=== PATIENT | female | born 1940 | race Caucasian/White ===

== ENCOUNTER → 2023-09-11 07:42 | Outpatient (REF) | payer MEDICARE, OTHER, SELFPAY | LOC: MRI 3T 07:42 | PROVIDERS: ATTENDING PHYSICIAN Psychiatry & Neurology Neurology; FAMILY PHYSICIAN Nurse Practitioner | DX: G30.9 Alzheimer's disease, unspecified (principal); F02.80 Dementia in other diseases classified elsewhere, unspecified severity, without behavioral disturbance, psychotic disturbance, mood disturbance, and anxiety | CPT/HCPCS: 70553; A9575 ==

== ENCOUNTER → 2023-11-13 11:17 | Outpatient (REF) | payer MEDICARE, OTHER, SELFPAY ==
[2023-11-13 13:59] LABS: TSH Reflex To Free T4 1.65 uIU/ml (0.47-4.68)
[2023-11-13 14:19] LABS: Vitamin B12 980 pg/ml (239-931)
[2023-11-13 16:40] LABS: Syphilis/T. pallidum Ab Reflex Negative (Negative)
== END ==
LOC: REG 11:17
PROVIDERS: ATTENDING PHYSICIAN Psychiatry & Neurology Neurology
DX: G30.9 Alzheimer's disease, unspecified (principal)
CPT/HCPCS: 36415; 82607; 84443; 86780

== ENCOUNTER → 2023-11-22 11:00 | Outpatient (REF) | payer MEDICARE, OTHER, SELFPAY ==
[2023-11-22 12:11] LABS: % Basophils 0.4 % (0-2); % Eosinophils 4.5 % (0-6); % Immature Granulocytes 0.4 % (0-0.5); % Lymphocytes 18.3 % (20.5-51.1); % Monocytes 10.5 % (1.7-9.3); % Neutrophils 65.9 % (42.2-75.2); Absolute Eosinophils 0.3 10^3/uL (0-0.7); Absolute Lymphocytes 1.3 10^3/uL (1.2-3.4); Absolute Monocytes 0.7 10^3/uL (0.1-0.6); Absolute Neutrophils 4.5 10^3/uL (1.4-6.5); Hematocrit 32.4 % (37.0-47.0); Hemoglobin 10.5 g/dL (12.0-16.0); Mean Corp Hgb Conc. 32.4 g/dL (33.0-37.0); Mean Corpuscular Hgb 30.1 pg (27.0-31.0); Mean Corpuscular Volume 92.8 fL (81.0-99.0); Mean Platelet Volume 8.9 fL (7.4-10.4); Nucleated Red Blood Cells % 0 %; Platelet Count 198 10^3/uL (130-400); Red Blood Cell Count 3.49 10^6/uL (4.20-5.40); Red Cell Dist. Width 14.2 % (11.5-14.5); White Blood Cell Count 6.8 10^3/uL (4.8-10.8)
[2023-11-22 13:43] LABS: ALT (SGPT) 19 U/L (0-35); AST (SGOT) 35 U/L (14-36); Albumin 4.4 g/dl (3.5-5.0); Alkaline Phosphatase 66 U/L (38-126); Blood Urea Nitrogen 32 mg/dl (7-17); Calcium 9.8 mg/dl (8.4-10.2); Carbon Dioxide 30 mmol/L (22-30); Chloride 100 mmol/L (98-107); Glucose 63 mg/dl (70-99); Potassium 5.2 mmol/L (3.5-5.1); Sodium 134 mmol/L (135-145); Total Bilirubin 0.4 mg/dl (0.2-1.3); Total Protein 7.5 g/dl (6.3-8.2); eGFR 55.55
== END ==
LOC: REG 11:00
PROVIDERS: ATTENDING PHYSICIAN Internal Medicine Cardiovascular Disease; FAMILY PHYSICIAN Internal Medicine; REFERRING PHYSICIAN Internal Medicine Interventional Cardiology
DX: I10 Essential (primary) hypertension (principal); R74.01 Elevation of levels of liver transaminase levels
CPT/HCPCS: 36415; 80053; 85025

== ENCOUNTER 2023-12-03 07:53 | Day surgery (SDC) | payer MEDICARE, OTHER, SELFPAY ==
[2023-12-03] VITALS (14 sets, daily range): BP systolic 106–150; BP diastolic 36–72; BMI 22.1
[2023-12-03] MEDS: NSS 149 ML IV (08:31)
[2023-12-03] MEDS: LOW STRENGTH ASPIRIN 81 MG PO (08:32)
--- NOTE | 2023-12-03 09:32 | ITS.CL.CATH ---
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
Cardiac Catheterization
Procedure Report:
LEFT HEART CATHETERIZATION
Date of Procedure: [12/03/2023]
Procedures performed:
1: Coronary angiography
2: Right heart catheterization
3: Conscious sedation
Primary Care Physician: Unknown
Primary Church Business Administrator: Sasha Brian MD
INDICATION: Severe aortic stenosis
After obtaining informed consent, patient was brought into the procedure room and right radial artery was prepped and draped in sterile fashion. Right brachial vein was prepped and draped in sterile fashion.
ACCESS: The patient was prepped and draped in usual sterile fashion. A 6 Dominican sheath was placed in the right [right radial] artery using the Seldinger over the wire technique.
Using brachial vein access, right heart catheterization was performed. A 5 Dominican Gonsalez balloontipped catheter was used to measure right-sided pressures.
Pulmonary capillary wedge pressure is 14 mmHg.
PA's 29/18 with a mean of 19 mmHg.
RV is 30 over 3 mmHg.
RA is 9 mmHg.
Aortic pressure is 121/43.
Tobin cardiac output is 3.53 L/min.
Cardiac index 2.48 L/min/m�.
ANGIOGRAPHIC FINDINGS: Patient has known severe aortic stenosis by echo, so the aortic valve was not crossed.
Coronary Angiography: Using a JL 4 diagnostic catheter, left main coronary was engaged. Left system was imaged in multiple projections. Using a JR 4 diagnostic catheter, right system was engaged. Right system was imaged in multiple projections.
Dominance: Right dominant.
Left Main: Very short. Early bifurcation into the LAD and left circumflex artery. Mild luminal irregularities.
Left Anterior Descending: Large vessel. Very tortuous. Minor luminal irregularities present. 2 large diagonals present. LAD which is the apex.
Left Circumflex: Normal sized vessel. 1 large OM. Mild luminal regularities present.
Right Coronary: Normal sized vessel. Dominant. 20 to 30% mid right coronary artery stenosis, mildly calcified.
Closure device: None. A TR band was applied for hemostasis at the right wrist. Manual pressure was held in the right brachial vein.
Complications: None.
ASSESSMENT:
1: No angiographically significant coronary artery disease
2: Normal right-sided pressures.
CONCLUSIONS and RECOMMENDATIONS:
1: [Proceed with a TAVR workup as planned.]
I was present with the patient for the duration of the moderate sedation and supervised staff who monitored the patient for the entire procedure. Details of sedation are entered by the nurse administering the sedation and details of the patient's
monitoring status are entered by a sign monitor role staff member into the [facility] laboratory electronic record system. Please see the nursing flow sheets for documentation of the name of the independent trained observer, and intra-service start and
end times.
I administered moderate sedation throughout this [24] minute procedure. An independent trained observer administered medications at my direction, and monitored, along with the monitor role staff member, the patient's level of consciousness and
physiological status throughout
[2023-12-03] MEDS: NSS 1000 IV (10:12)
--- NOTE | 2023-12-03 12:45 | CONSULT.STRU ---
Consultation
-
Date/Time Consultation Requested: 12/03/2023 0930
Date/Time Consultation Performed: 12/03/2023 1000
Requesting Provider: Dr. Donahue
Performing Provider: ELMER Dennis
Reason for Consultation: Aortic stenosis, TAVR evaluation
Patient History
Physicians
Family Physician: Laya Broussard
Outpatient Blockers Skiver: Sasha Brian
Primary Blockers Skiver: Sasha Brian
History of Present Illness
Mrs. Hodges is a pleasant 82-year-old female who is accompanied by her and underwent a cardiac catheterization this morning. Her past medical history is hypertension, osteoporosis, chronic anemia of unclear etiology with baseline hemoglobin
of 9.5-10.5 at least since 2021, hyperlipidemia, early stages of Alzheimer's/memory deficits, severe aortic stenosis. She was referred to Dr. Schafer by her primary broom handle dipper, Dr. Sasha Brian for evaluation of a transcatheter aortic valve
replacement/TAVR.� Patient is not very active at baseline and with limited activity which includes only walking around her home for basic ADLs, she denies any resting or exertional chest discomfort, shortness of breath, lower extremity edema,
orthopnea, PND or alex syncope. has noted that she does get fatigued. She had a echocardiogram completed on July 11, 2023 which showed normal LVEF by report with max velocity across aortic valve of 4.07 m/s, mean gradient of 40.6 mmHg
and estimated aortic valve area of 0.73 cm2. Her cardiac cath today show no obstructive CAD. She has not had any recent falls and does not use any assistive devices to walk. She lives at home with her .
Reviewed the pathophysiology of aortic stenosis with the patient and her . Explained the treatment options of SAVR and TAVR. Explained the TAVR evaluation process including follow up BMP, CT TAVR scan, CT surgery consult and Heart Team
discussion. Provided with script for BMP next week, script and appointment for CT TAVR, Consult appointment with Dr. Márquez and a copy of the TAVR education booklet with contact information. Allowed for and answered questions. Patient has already
completed dental clearance and letter is in her chart.
Past Medical History
Past Medical History: HTN, Hypercholesterolemia, Valvular Disease (severe aortic stenosis) and Other
osteoporosis, chronic anemia, memory loss, arthritis
Past Surgical History
Past Surgical History: Other (Cataract surgery 2009)
Dental History
Dr. Campbell- regular dental care, dental clearance compplete
Family History
Mother: at Age (83) and Cause of (breast cancer)
Father: at Age (67) and Cause of (cardiac)
Family Medical History: CAD and Hypertension
Social History
Alcohol: None
Drug: None
Tobacco: Non-Smoker
Personal:
Living: With Spouse
Allergies
Allergy/AdvReac Type Severity Reaction Status Date / Time
Penicillins Allergy Severe Unverified 11/28/07 11:28
Home Medications
�Medication �Instructions �Recorded �Confirmed �Type
Vision Formula (with lutein) 1 pill PO DAILY 12/03/23 12/03/23 History
aspirin 81 mg tablet 81 mg PO 12/03/23 12/03/23 History
calcium 600 mg capsule 600 mg PO DAILY 12/03/23 12/03/23 History
calcium phosphate,dibasic 77 2,000 tab PO HS 12/03/23 12/03/23 History
mg-vitamin D3 400 unit tablet
citalopram 10 mg tablet 10 mg PO DAILY 12/03/23 12/03/23 History
donepezil 10 mg tablet 10 mg PO HS 12/03/23 12/03/23 History
lisinopril 10 mg tablet 10 mg PO DAILY 12/03/23 12/03/23 History
memantine 10 mg tablet 10 mg PO BID 12/03/23 12/03/23 History
simvastatin 20 mg tablet 20 mg PO HS 12/03/23 12/03/23 History
STS%
STS %: 5.93%
Review of Systems
-
Unable to obtain full review of systems at this time due to: Dementia (early memory loss)
History Source: Patient and Family
General: Reports Fatigue
HEENT: Reports No Symptoms
Respiratory: Reports No Symptoms
Cardiac: Reports No Symptoms
Abdomen/GI: Reports No Symptoms
: Reports No Symptoms
Musculoskeletal: Reports Joint Pain (hips)
Skin: Reports Rash (redness under breast)
Neurological: Reports No Symptoms
Vascular: Reports No Symptoms
Physical Exam
Vital Signs
Temp 97.3 F 12/03/23 09:34
Temp route: Oral 12/03/23 09:34
Pulse 59 12/03/23 12:35
Resp Rate 17 12/03/23 12:35
Blood pressure 137/50 12/03/23 12:35
Blood pressure extremity used: Left upper arm 12/03/23 09:34
Position: Lying 12/03/23 09:34
MAP (cuff-Pedrito Monitor) 73 12/03/23 12:35
SaO2 98 12/03/23 12:35
Oxygen Mode of Delivery Room air 12/03/23 09:34
Can the patient verbally communicate their pain? Yes 12/03/23 09:34
Actual Weight 49.6 kg 12/03/23 08:19
Body Mass Index (BMI) 22.1 12/03/23 08:19
Labs
11/22/2023:
H/H: 10.5/32.4
Platelets: [id number]
BUN/Creat: 32/1.0
GFR: 55
Diagnostic Studies
07/11/2023 Echocardiogram at [facility]:
EF: 60-65%
Aortic valve with severe aortic stenosis. OG/M.3/40.7. Mild AI
Mitral Valve: mild to moderate MAC, mild MR
Tricuspid Valve: Mild TR
12/03/2023 Cardiac Cath:
ACCESS: The patient was prepped and draped in usual sterile fashion. A 6 Armenian sheath was placed in the right [right radial] artery using the Seldinger over the wire technique.
Using brachial vein access, right heart catheterization was performed. A 5 Armenian Gonsalez balloontipped catheter was used to measure right-sided pressures.
Pulmonary capillary wedge pressure is 14 mmHg.
PA's 29/18 with a mean of 19 mmHg.
RV is 30 over 3 mmHg.
RA is 9 mmHg.
Aortic pressure is 121/43.
Tobin cardiac output is 3.53 L/min.
Cardiac index 2.48 L/min/m�.
ANGIOGRAPHIC FINDINGS: Patient has known severe aortic stenosis by echo, so the aortic valve was not crossed.
Coronary Angiography: Using a JL 4 diagnostic catheter, left main coronary was engaged. Left system was imaged in multiple projections. Using a JR 4 diagnostic catheter, right system was engaged. Right system was imaged in multiple projections.
Dominance: Right dominant.
Left Main: Very short. Early bifurcation into the LAD and left circumflex artery. Mild luminal irregularities.
Left Anterior Descending: Large vessel. Very tortuous. Minor luminal irregularities present. 2 large diagonals present. LAD which is the apex.
Left Circumflex: Normal sized vessel. 1 large OM. Mild luminal regularities present.
Right Coronary: Normal sized vessel. Dominant. 20 to 30% mid right coronary artery stenosis, mildly calcified.
Closure device: None. A TR band was applied for hemostasis at the right wrist. Manual pressure was held in the right brachial vein.
Complications: None.
ASSESSMENT:
1: No angiographically significant coronary artery disease
2: Normal right-sided pressures.
CONCLUSIONS and RECOMMENDATIONS:
1: [Proceed with a TAVR workup as planned.]
Exam
General: Well Developed, Well Nourished, No Apparent Distress and Comfortable
HEENT: Normocephalic and Moist Mucous Membranes
Neck: Trachea Midline
Respiratory: Clear
Cardiac: S1/S2, Regular Rhythm and Murmur (Grade III/)
GI: Soft, Non Tender, Non Distended and Normal Bowel Sounds
Rectal: Deferred by Provider
Skin: Warm and Dry
Neuro: Awake, Oriented and No Motor Deficits
Extremities: Pulses (+2 pedal pulses)
Psych: Calm
Assessment / Plan
-
Severe Aortic stenosis:
��������������� Continue evaluation for TAVR
��������������� [facility]
��������������� CT TAVR scan 12/13/2023 at 0930 at
��������������� CT surgery consult with Dr. Márquez 12/18/2023
��������������� Heart team discussion at [facility]
Data Reviewed
-
Center Director Lead Teacher: Report Reviewed by me
Echo: Report Reviewed by me
Labs: Labs Reviewed by me
Total Time Spent with Patient (in minutes): 40
== END 2023-12-03 13:57 | disposition home or self-care (01) ==
LOC: CATH 07:53
PROVIDERS: ATTENDING PHYSICIAN Internal Medicine Cardiovascular Disease; FAMILY PHYSICIAN Internal Medicine
DX: I25.10 Atherosclerotic heart disease of native coronary artery without angina pectoris (principal); I35.0 Nonrheumatic aortic (valve) stenosis; I10 Essential (primary) hypertension; E78.00 Pure hypercholesterolemia, unspecified; R41.82 Altered mental status, unspecified; Z79.82 Long term (current) use of aspirin; Z80.3 Family history of malignant neoplasm of breast; Z82.49 Family history of ischemic heart disease and other diseases of the circulatory system
CPT/HCPCS: 99152; 99153; C1894; 93456; Q9967

== ENCOUNTER 2023-12-03 19:53 | Emergency (ER) | payer MEDICARE, OTHER, SELFPAY ==
[2023-12-03 20:17] VITALS: BP 129/44
[2023-12-03 21:14] VITALS: BMI 22.6
[2023-12-03 23:00] VITALS: BP 128/48
[2023-12-04 01:00] VITALS: BP 130/68
--- NOTE | 2023-12-04 01:01 | ED.GENMED ---
History of Present Illness
General
Chief Complaint: Skin Problem
Source: patient and spouse
Time Seen by Provider: 12/04/23 00:14
Travel History
Have you had any contact with someone who has COVID-19?: No
Do you have any symptoms of coronavirus? Fever > 100 degrees, chills, cough, shortness of breath, sore throat, loss of taste or smell, muscle aches, or headache?: No
History of Present Illness
History of Present Illness:
83-year-old female with past medical history of diverticulitis, GERD, cardiac murmur presenting to the emergency department for evaluation of right upper extremity ecchymosis and pain following cardiac catheterization earlier today. Patient and
are unable to tell me why patient had cardiac catheterization but based off of record review it appears patient has severe aortic stenosis. Patient states since the procedure she has had bruising, pain and edema which is gradually gotten
worse overnight prompting them to come to the ER today. Patient has no other concerns at this time. She does take a daily aspirin but did not take the aspirin this evening.
Past History
Past History
ED Past Medical History: GERD and Valvular disease
ED Past Surgical History: None
Social History
Tobacco: Non-smoker
Alcohol: None
Drug: None
Personal:
Living: with family
Review of Systems
Review of Systems
All Other Systems: ROS reviewed and negative except as documented in HPI and ROS
Phy Exam
Physical Exam
Physical Exam:
GENERAL: Alert , in no apparent distress
EYE: conjunctiva clear
NECK: Supple
ENT: o/p clr, mmm.
CARDIAC: Regular rate and rhythm
LUNGS: Clear breath sounds bilaterally, no acute respiratory distress, no wheezes/rales/rhonchi
NEUROLOGICAL: Alert and oriented
SKIN: Warm and dry, ecchymosis and edema to the volar right forearm extending to the distal third of the forearm. There is also ecchymosis in the antecubital fossa of the right.
MUSCULOSKELETAL: well perfused. Palpable radial pulse. Cap refill less than 2 seconds and sensation is grossly intact to light touch
PSYCH: Normal and appropriate interaction.
Scores
Heart Failure Risk
Heart Failure Risk Score: Not Applicable
Heart Score for Chest Pain Patients
STEMI patient?: Not applicable
Withdrawal Assessment of Alcohol
Withdrawal Assessment Completed?: Not applicable
Course
Orders/Labs/Results
Orders:
Orders
12/04/23 00:22
US Vascular Exam Limited Urgent
Reason For Exam: ecchymosis, pain, cath today, ? pseudoaneurysm
12/04/23 01:38
Acetaminophen [Tylenol] 650 mg PO NOW STA
Vital Signs
Initial and Last Documented VS:
Initial Vital Signs
Temp Pulse Resp BP Pulse Ox
98.1 F 64 18 129/44 98
12/03/23 20:17 12/03/23 20:17 12/03/23 20:17 12/03/23 20:17 12/03/23 20:17
Last Documented Vital Signs
Temp Pulse Resp BP Pulse Ox
98.1 F 70 18 130/68 98
12/03/23 20:17 12/04/23 01:00 12/04/23 01:00 12/04/23 01:00 12/04/23 01:00
MDM/Problems Addressed
Differential Diagnosis Includes:
Postprocedural ecchymosis, pseudoaneurysm, no concern for DVT
MDM/Problems Addressed:
83-year-old female presenting emergency department for evaluation of right forearm ecchymosis and edema following cardiac catheterization. Based off record review the cardiac catheterization was done for severe aortic stenosis with no CAD found and
normal right-sided pressures. Based off presentation biggest concern would be for possible pseudoaneurysm. Will obtain a arterial ultrasound. Vascular team and cardiovascular specialist notified. Patient is otherwise stable at this time.
*Radiology
Radiology exam reviewed: radiology read reviewed
*Pulse Oximetry
Patient hypoxic: no
*Critical Care Note
Total Time (30-74mins, 75-104mins- exclusive of procedures): Not Applicable
Data Reviewed
Review of Other/Old Records Reveals: Records and Testing
Source: patient, records and spouse
Patient Management
Escalation/DeEscalation of care consider admission/obs:
Patient's ultrasound is negative for pseudoaneurysm and hematoma. Will place pressure dressing back over the forearm. Patient can take Tylenol for pain as needed and otherwise stable for discharge home.
ED Attending Note
-
Portions of this chart may have been created with voice recognition software.� Occasional wrong word or��sound alike� substitutions may have occurred due to the inherent limitations of voice recognition software.
Discharge Plan
Departure
Patient Disposition: Home (Routine Discharge)
Date of Disposition: 12/04/23
Time of Disposition: 01:36
Patient with high blood pressure during this ER visit?: No
Discharge Problem:
Ecchymosis of wrist
Instructions: Wound Care for Arterial Puncture (DC)
Prescriptions:
No Action
calcium 600 mg Capsule
600 mg PO DAILY
citalopram 10 mg Tablet
10 mg PO DAILY
donepezil 10 mg Tablet
10 mg PO HS
simvastatin 20 mg Tablet
20 mg PO HS
lisinopril 10 mg Tablet
10 mg PO DAILY
aspirin 81 mg Tablet
81 mg PO HS
memantine 10 mg Tablet
10 mg PO BID
calcium phos,dibas-vitamin D3 77-400 mg-unit Tablet
2,000 tab PO HS
Vision Formula (with lutein)
1 pill PO DAILY
Referrals:
Jenny Thompson MD [Family Provider] -
Interventions
Interventions:
*Risk Screen - Suicide Last Done: 12/03/23 20:17
*General Assessment Last Done: 12/03/23 20:17
*Neglect/Abuse Screening Last Done: 12/03/23 20:17
ED- Fall Risk Assessment Last Done: 12/03/23 21:14
*ED COVID-19 Vaccine History Last Done: 12/03/23 23:13
ED-Skin Assessment Last Done: 12/03/23 23:11
Discharge Date and Time
Print Language: BRITISH
[2023-12-04] MEDS: TYLENOL 650 MG PO (01:48)
[2023-12-04 01:57] VITALS: BP 124/68
== END 2023-12-04 01:59 | disposition home or self-care (01) ==
LOC: EMR 19:53
PROVIDERS: EMERGENCY PHYSICIAN Emergency Medicine; FAMILY PHYSICIAN Internal Medicine
DX: S50.11XA Contusion of right forearm, initial encounter (principal); X58.XXXA Exposure to other specified factors, initial encounter; K21.9 Gastro-esophageal reflux disease without esophagitis; I35.0 Nonrheumatic aortic (valve) stenosis
CPT/HCPCS: 99284; 93926

== ENCOUNTER → 2023-12-18 14:18 | Outpatient (REF) | payer MEDICARE, OTHER, SELFPAY | LOC: RAD 14:18 | PROVIDERS: ATTENDING PHYSICIAN Nurse Practitioner Adult Health; FAMILY PHYSICIAN Nurse Practitioner | DX: I35.0 Nonrheumatic aortic (valve) stenosis (principal) | CPT/HCPCS: 74174; 75572; Q9967 ==

== ENCOUNTER → 2023-12-28 16:07 | Outpatient (REF) | payer MEDICARE, OTHER, SELFPAY | LOC: RAD 16:07 | PROVIDERS: ATTENDING PHYSICIAN Psychiatry & Neurology Neurology; FAMILY PHYSICIAN Internal Medicine | DX: G30.9 Alzheimer's disease, unspecified (principal); F02.80 Dementia in other diseases classified elsewhere, unspecified severity, without behavioral disturbance, psychotic disturbance, mood disturbance, and anxiety; M54.2 Cervicalgia; Z91.81 History of falling | CPT/HCPCS: 70450; 72125 ==

== ENCOUNTER 2024-01-10 07:24 | Inpatient (IN) | payer MEDICARE, OTHER, SELFPAY ==
[2024-01-04 08:40] VITALS: BMI 23.1
[2024-01-04 09:21] LABS: Urine Albumin Negative (Neg - Trace); Urine Bilirubin Negative (Negative); Urine Character Clear (Clear); Urine Color Yellow; Urine Glucose Negative (Negative); Urine Ketone Negative (Negative); Urine Leukocyte Trace (Negative); Urine Nitrite Negative (Negative); Urine Occult Blood 1+ (Negative); Urine Specific Gravity 1.015 (<1.030); Urine Urobilinogen Negative (Neg - 1+)
[2024-01-04 09:28] LABS: Urine Bacteria Few (Negative)
[2024-01-04 09:29] LABS: Urine White Cell 0-2 /HPF (0-5)
[2024-01-04 09:31] LABS: INR 1.04; PT 13.5 Sec (11.4-14.6)
[2024-01-04 09:32] LABS: APTT 30.2 Sec (23.4-35.0)
[2024-01-04 09:38] LABS: % Basophils 0.5 % (0-2); % Eosinophils 2.7 % (0-6); % Immature Granulocytes 0.3 % (0-0.5); % Lymphocytes 21.9 % (20.5-51.1); % Monocytes 12.9 % (1.7-9.3); % Neutrophils 61.7 % (42.2-75.2); Absolute Eosinophils 0.2 10^3/uL (0-0.7); Absolute Lymphocytes 1.3 10^3/uL (1.2-3.4); Absolute Monocytes 0.8 10^3/uL (0.1-0.6); Absolute Neutrophils 3.6 10^3/uL (1.4-6.5); Hematocrit 30.5 % (37.0-47.0); Hemoglobin 9.8 g/dL (12.0-16.0); Mean Corp Hgb Conc. 32.1 g/dL (33.0-37.0); Mean Corpuscular Hgb 29.8 pg (27.0-31.0); Mean Corpuscular Volume 92.7 fL (81.0-99.0); Mean Platelet Volume 8.8 fL (7.4-10.4); Nucleated Red Blood Cells % 0 %; Platelet Count 177 10^3/uL (130-400); Red Blood Cell Count 3.29 10^6/uL (4.20-5.40); Red Cell Dist. Width 14.1 % (11.5-14.5); White Blood Cell Count 5.9 10^3/uL (4.8-10.8)
[2024-01-04 09:42] LABS: NT-proBNP 684 pg/ml
[2024-01-04 10:39] LABS: ALT (SGPT) 18 U/L (0-35); AST (SGOT) 33 U/L (14-36); Albumin 4.1 g/dl (3.5-5.0); Alkaline Phosphatase 51 U/L (38-126); Blood Urea Nitrogen 36 mg/dl (7-17); Calcium 9.8 mg/dl (8.4-10.2); Carbon Dioxide 28 mmol/L (22-30); Chloride 99 mmol/L (98-107); Direct Bilirubin 0.3 mg/dl (0.0-0.4); Estimated Creatinine Clearance 27 ml/min; Glucose 49 mg/dl (70-99); Potassium 4.7 mmol/L (3.5-5.1); Sodium 134 mmol/L (135-145); Total Bilirubin 0.4 mg/dl (0.2-1.3); eGFR 55.55
--- NOTE | 2024-01-04 10:44 | CM ---
CM met w/ patient and spouse, Claudio during PATs for planned TAVR, 01/09.
Patient resides in a private ranch style home w/ spouse, son/ 1 BLAINE. Functionally, patient is indep. without the use of any assisted device. Pt. has memory issues so spouse assists as with ADLs.
Reviewed pre and post op routines.
Soap, shower instructions and TAVR booklet provided.
Reviewed post op MD appointment, Cardiac Rehab and visit from CT Transitional Care RN.
Discussed post op restrictions to include lifting and driving restrictions (pt. does not drive).
Plan for TAVR, 01/09.
Anticipated DC plan is for home w/ CT Transitional Care RN.
CM to follow.
[2024-01-04 11:59] LABS: Glycohemoglobin (HgbA1c) 5.8 % (4.0-5.6)
[2024-01-10] VITALS (20 sets, daily range): BP systolic 101–153; BP diastolic 43–103; BMI 23.0
--- NOTE | 2024-01-10 09:26 | CM ---
Patient in OR today for planned TAVR.
Prior to admission, patient resides w/ spouse/son in a private, ranch style home.
Plan is for DC to home w/ CT Transitional Care RN.
CM to follow.
--- NOTE | 2024-01-10 09:36 | W.CVOR.SURPR ---
CVOR Surgeon Immed Pre Op
-
I have examined this patient prior to performance of the scheduled procedure.
The patient's condition is unchanged from the time of the dictated/written History and
Physical and the patient is able to undergo the scheduled procedure.
[2024-01-10 09:57] LABS: Glucose - Point of Care 104 mg/dl (70-99)
[2024-01-10 11:10] LABS: ACT-LR - POC 208 Seconds (116-155)
[2024-01-10 11:20] LABS: ACT-LR - POC 302 Seconds (116-155)
--- NOTE | 2024-01-10 11:40 | W.IMMPOSTOP ---
Surgical Immed Post Op Note
-
[id number]
STRUCTURAL HEART PROCEDURE NOTE: TAVR
Preoperative Dx:
Severe aortic stenosis
HTN/HLD
Osteoporosis
DDD
GERD
Alzheimer's
Postoperative Dx:
Same
Procedures:
1) R CFV access w/ U/S and fluoroscopic guidance, micropuncture technique, 6Fr sheath placement
2) R PIER RUNNER access w/ U/S, tactile, and fluoroscopic guidance, micropuncture technique, 6Fr sheath placement
3) L PIER RUNNER access w/ U/S, tactile, and fluoroscopic guidance, micropuncture technique, limited angiography, 8Fr dilator placement
4) Perclose placement x 2 into L PIER RUNNER, 8Fr sheath placement
5) Placement of temporary RV pacing wire via R CFV access w/ threshold testing
6) Placement of pigtail catheter in NCC w/ limited aortography & confirmation of cusp-overlap view
7) Serial dilation of L ileofemoral system w/ placement of 14Fr COOK sheath
8) Wire purchase across stenotic AV (AL-1, soft-tip straight, table-J, pigtail, LVEDP assessment (19mmHg)
9) Fluoroscopic inspection of TAVR valve
10) Placement of LV lunderquist wire
11) Pre-TAVR BAV
12) L TF TAVR w/ placement of 26mm Medtronic Evolut FX (no recaptures; 4-5mm NCC, 3-4mm LCC)
13) Completion aortography
14) Completion TTE (no AI/PVL, mean gradient 3mmHg)
15) Removal of opxrm-nojgsanx-xzichl/in-line sheath w/ L PIER RUNNER mgmt w/ perclose x 2; manual pressure
16) Completion left ileofemoral angiography
17) Limited right ileofemoral angiography
18) Removal of R PIER RUNNER sheath w/ mgmt w/ 6Fr angioseal; manual pressure
19) Removal of temporary pacing wire and R CFV sheath; manual pressure
Photograph Enlarger:
Dr. Lavonne Schafer
Cardiac Surgeon:
Dr. Onel Márquez
Anesthesia:
MAC & local to B/L groins
Complications:
New BBB w/o bradycardia or pacing requirements
Implants:
Perclose x 2
6Fr angioseal x 1
Medtronic Evolut Fx TAVR 26mm, SN [id number]
Cath Data:
Start: 1036hrs, Deploy: 1120hrs, End: 1136hrs
FT: 13.1min, mGy: 199.73, DAP: 22.2866, Contrast: 106
Post-TTE: No effusion, hyperdynamic function, mean gradient 3mmHg, no AI/PVL
Condition:
Stable/guarded to recovery
[2024-01-10] MEDS: LEVOPHED 250 IV (12:04)
--- NOTE | 2024-01-10 12:17 | W.PN.UPDATE ---
Update Note
Progress Note Update
Reviewed Ms. Hodges with the heart team in the preTAVR SDM meeting and confirmed a 26mm Evolut vial left transfemoral access. Patient will resume aspirin post TAVR. LVEDP 19mmHg. #26mm Evolut (serial# [id number]) successfully deployed via left
transfemoral access. Post implant MG 3mmHg).
[2024-01-10] MEDS: ANCEF 10 IV ×2 (14:08)
--- NOTE | 2024-01-10 14:14 | PTCARENOTE ---
Rec'd pt from pit laborer awake and alert on Levo at 1mcg/min. Pt denies pain, denies sob. RA. Rt and left groin dsg intact, no bleeding, no hematoma. Neuro intact but pt forgetful (baseline). Pt tolerating sips of cindy-casandra. See worklist for VS/I and
O and groin checks.
--- NOTE | 2024-01-10 15:35 | ITS.CL.TAVR ---
Payment Manager - TAVR Report
TAVR PRocedure
Procedure Report:
TRANSCATHETER AORTIC VALVE REPLACEMENT
Date of Procedure: January 10, 2020
Referring: Sashaadriana Romanoing
Operators: Drs. Lavonne Schafer MD and Onel Márquez MD
PROCEDURE PERFORMED:
1. Successful placement of 26 mm Medtronic Evolut FX valve via left common femoral artery.
PREPROCEDURE NYHA CLASS: II
DESCRIPTION OF PROCEDURE: The patient was referred for assessment of severe symptomatic aortic stenosis and following a comprehensive evaluation it was felt that transcatheter aortic valve replacement (TAVR) would be the most appropriate treatment.
Informed consent was obtained prior to the procedure. A 'time-out' was called and the procedural plan was verbally confirmed by anesthesia, surgery, perfusion, and baker laboratory staff.
Arterial and venous access were obtained in the right common femoral artery and vein using a micropuncture technique and 6 Fr. sheaths were inserted. A 5 Fr. transvenous pacing wire was then advanced to the right ventricle where excellent pacing
thresholds were obtained.
A 5 Fr. pigtail catheter was then advanced to the proximal ascending aorta / noncoronary cusp where angiography was performed to define the the cusp overlap view isolating the non-coronary cusp with overlap of the right and left coronary cusps. The
cusp overlap view was BRITISH 32/ CAU 38
Ultrasound guidance was then used to obtain arterial access in the left common femoral artery and a 4 Fr. dilated was inserted. Angiography was performed and the arteriotomy site appeared appropriate for preclosure with two Perclose devices. An 8
Lao sheath was then inserted back into the common femoral artery over a J-tipped guidewire. An AL1 catheter was then advanced to the proximal descending aorta. A Double-curve Magali 0.035' wire was placed in the proximal descending
thoracic aorta to facilitate delivery of a 14 Fr / 13 cm Cook sheath.
An AL1 catheter was then positioned just above the aortic valve and a 0.035' Straight tip wire probed the aortic valve and crossed the stenotic leaflets. The AL1 was then advanced to the mid left ventricle. A long J-wire was advanced to the left
ventricular apex and was followed to the apex with an angled pig-tail catheter. The Double Curve Lunderquist was then positioned in the left ventricular apex. The Evolut Pro+ stent was inspected under fluoroscopy/cine while rotating the stent
delivery system. The stent paddles were within the pocket and no significant crown overlap noted.
Balloon predilation was performed with rapid pacing using a DAVID 18mm balloon. The balloon was removed and the 14 Fr. sheath was exchanged for the Evolut InLine delivery system. The 26 mm Evolut FX TAVR was advanced across the stenotic leaflets.
The Evolut FX valve was slowly deployed in the leaflet overlap view until the stent flared achieving contact at 4-5mm below the noncoronary cusp. The stent continued to flared achieving contact with the left coronary cusp. The image intensifier
was rotated to an BRITISH position to remove parallax from the valve with continued valve deployment with controlled pacing. We transitioned quickly through the rumble strips on the InLine delivery sheath until the marker band was positioned just below
the paddle attachment. Angiography was performed. The valve structure was released from the delivery system when we were happy with the valve position. Post deployment angiography had only mild aortic insufficiency and a mean gradient of 3 mmHg.
The Evolut Pro+ delivery system capsule was reunited to the body of the delivery system. The Evolut InLine sheath was removed and the Perclose knots were advanced to the arteriotomy site resulting in excellent hemostasis.
Fluoro Time (min): 13.1, Dose (mGy): 199.7, DAP (Gy.cm2) : 22.3
CONCLUSIONS:
1. Severe symptomatic aortic stenosis. Successful deployment of a 26 mm Evolut FX valve with minimal aortic insufficiency post procedure.
2. Successful arteriotomy closure with 2 Perclose devices.
Copy to: Marques White
Lavonne Schafer MD, FACC, [facility]
[2024-01-10] MEDS: THERAGRAN 1 TABLET PO (16:16)
--- NOTE | 2024-01-10 16:48 | PTCARENOTE ---
Left and right groin dressings C/D/I. No hematoma observed. Pt assisted OOB to chair 4 hours after manual pressure/closure, per order. Ambulated to bathroom with assistance, voided clear yellow. Assisted back to chair.
[2024-01-10] MEDS: LIPITOR 40 MG PO (17:04)
[2024-01-10] MEDS: ANCEF 5 IV (17:05)
[2024-01-10] MEDS: NAMENDA 10 MG PO (19:19)
--- NOTE | 2024-01-10 22:08 | PTCARENOTE ---
Received pt at handoff. Pt oriented to person and place. Pt on bed alarm for hx Alzheimers and memory loss. Pt OOB to chair. SCDs on. B/l groin sites are c/d/i; no hematoma observed. Tele- SR. No c/o at this time. Call miguel a w/in reach.
[2024-01-10] MEDS: ARICEPT 10 MG PO (22:41)
[2024-01-11] VITALS (9 sets, daily range): BP systolic 120–160; BP diastolic 43–74; PULSE 72; O2SAT 94–99; BMI 22.9
[2024-01-11 03:03] LABS: Hematocrit 27.3 % (37.0-47.0); Hemoglobin 9.1 g/dL (12.0-16.0); Mean Corp Hgb Conc. 33.3 g/dL (33.0-37.0); Mean Corpuscular Volume 90.1 fL (81.0-99.0); Mean Platelet Volume 8.7 fL (7.4-10.4); Platelet Count 135 10^3/uL (130-400); Red Blood Cell Count 3.03 10^6/uL (4.20-5.40); Red Cell Dist. Width 13.5 % (11.5-14.5); White Blood Cell Count 8.6 10^3/uL (4.8-10.8)
[2024-01-11 03:42] LABS: Blood Urea Nitrogen 30 mg/dl (7-17); Calcium 8.7 mg/dl (8.4-10.2); Carbon Dioxide 24 mmol/L (22-30); Chloride 100 mmol/L (98-107); Estimated Creatinine Clearance 30 ml/min; Glucose 117 mg/dl (70-99); Potassium 4.5 mmol/L (3.5-5.1); Sodium 130 mmol/L (135-145); eGFR > 60.00
--- NOTE | 2024-01-11 06:03 | W.PN.CT ---
Today's Communication / Plan
-
-pod #1
-no issues overnight
-in nsr 60s overnight. No nereyda or pauses
-pre-existing 1st degree AVB, transient new LBBB (resolved)
-L groin appears tender this am - will US
-Echo today
-current meds (ASA, Zestril, Lipitor)
-encourage IS, OOB
Assessment / Plan
-
- Severe symptomatic - s/p Pre-TAVR BAV followed by L TF TAVR w/ placement of 26mm Medtronic Evolut FX (no recaptures; 4-5mm NCC, 3-4mm LCC) on 01/10/24, pod #1
- New BBB w/o bradycardia or pacing requirements
- Post-TTE: No effusion, hyperdynamic function, mean gradient 3mmHg, no AI/PVL
- HTN/HLD
- Chronic anemia
- Osteoporosis
- DDD
- GERD
- Alzheimer's
Discussed patient care with: Nursing and Care Team
Subjective
Procedure
- s/p Pre-TAVR BAV followed by L TF TAVR w/ placement of 26mm Medtronic Evolut FX (no recaptures; 4-5mm NCC, 3-4mm LCC) on 01/10/24
-
Date of Service: January 11, 2024
Objective Data
-
PT 13.5 Sec (11.4-14.6) 01/04/24 08:53
INR 1.04 01/04/24 08:53
APTT 30.2 Sec (23.4-35.0) 01/04/24 08:53
Vital Signs
Vital Signs
Temp Pulse Resp BP Pulse Ox
97.4 F 65 14 143/54 97
01/10/24 23:05 01/10/24 23:00 01/10/24 23:05 01/10/24 23:00 01/10/24 23:05
CT Intake/Output/Weight
01/10/24 01/10/24 01/11/24
06:59 18:59 06:59
Intake Total 1700 / 1850 150 / 1850
Output Total 700 / 1000 300 / 1000
Balance 1000 / 850 -150 / 850
SaO2: 97
Physical Exam
-
General: Awake and AOx3
Cardiovascular: Regular rate & rhythm, No Murmurs and No Rub
Respiratory: Clear
Incision: Other (groins are cdi, soft, nontender, no hematoma b/l)
Extremities: No Edema (2+ DPs b/l)
Data Reviewed
-
Lab Results: Results Reviewed
Medications: Active Meds Reviewed
Chest X-Ray: Report Reviewed and Image Reviewed
ECG: Report Reviewed and Image Reviewed
--- NOTE | 2024-01-11 06:05 | PTCARENOTE ---
Baudilio JIMENEZ at bedside. R groin is c/d/i. L groin appears tender. New orders placed for U/S.
[2024-01-11] MEDS: OSCAL 500 + D 500 MG PO (09:08)
[2024-01-11] MEDS: LOW STRENGTH ASPIRIN 81 MG PO (09:08)
[2024-01-11] MEDS: OSCAL CAL 500 500 MG PO (09:08)
[2024-01-11] MEDS: OCUVITE SOFTGEL 1 CAP PO (09:08)
[2024-01-11] MEDS: ZESTRIL 10 MG PO (09:09)
[2024-01-11] MEDS: NAMENDA 10 MG PO ×2 (09:09→20:34)
[2024-01-11] MEDS: CELEXA 10 MG PO (09:09)
[2024-01-11] MEDS: THERAGRAN 1 TABLET PO (09:09)
--- NOTE | 2024-01-11 11:35 | CM ---
Chart reviewed. Patient is independent of ADLS, lives with her in a split level, 3 BLAINE, 0 DME. Plan is for the patient to return home.
--- NOTE | 2024-01-11 11:39 | CM ---
Chart reviewed. Patient is independent of ADLS, live with her and son in a 1 STH, 1 BLAINE, 0 DME. Plan is for the patient to return home with CT Transitional RN. CM to follow
--- NOTE | 2024-01-11 12:42 | W.DCSUMMARY ---
Documented by User: ELMER Otoole 01/11/24 13:02
Discharge Summary
Discharge Data
Date of Admission: 01/10/24
Date of Discharge: 01/11/24
Total time spent discharging patient (in min): 35
-
Pending Results: No
Hospital Course
Primary care physician:
Bobo PAYNE
Outpatient gun sealing machine operator:
Dr. Brian
Inpatient consultants:
[facility]
Procedures:
1. Left transfemoral transcatheter aortic valve replacement with #26 mm evolut fracture valve
Primary Diagnosis:
1. Severe aortic stenosis
Secondary Diagnoses:
1. Hypertension
2. Hyperlipidemia
3. Chronic anemia
4. Memory loss
5. Arthritis
HPI: 83-year-old female seen in the office by Dr. Márquez presented electively on 01/09 for a transcatheter aortic valve replacement.
Hospital course:
Patient was electively admitted on 01/09 for a transcatheter aortic valve replacement with Dr. Márquez. There were no intra-op events and patient went to cath lab radiological technologist recovery. B/l groins remain stable. She was sent to IVU for the remainder of their
recovery. On 01/10, POD #1, B/L groins remained stable. however, she complained of tenderness so the left groin was ultrasounded. It showed . Repeat TTE showed a peak/mean gradient of 7/4 across the aortic valve and moderate TR. She was kepted
for an additional day for monitoring. On 01/11, She was deemed stable for discharge.
Home medication changes:
See below
Discharge Plan
-
Patient Disposition: Home (Routine Discharge)
Discharge Diagnosis/Procedures: TF-TAVR
Condition: Good
Diet: Low Cholesterol and 2 Gram Sodium
Activity: As tolerated
Driving Restrictions: No driving for 1 week
Bathing Restrictions: OK to Shower
Others Tests: Please call your gun sealing machine operator, Dr. Brian, to schedule a follow up echocardiogram for 30 days after your TAVR
Other Services: Cardiac Rehab
Wound Care: Please do not apply lotions, creams or powders to groin areas. Please monitor for increased pain, swelling, redness or drainage. Please notify your doctor if any occur.
Specialty Instructions: Weigh Daily- Call MD for wt gain/loss 3 lbs overnight/5 lbs in 1 week
Stand Alone Forms: DC Inst - TransFemoral (TAVR)
Referrals:
CT Transitional Care Nurse [Outside] (The Cardiothoracic Transitional Care Nurse will call you to set up a visit in 1-2 days.)
Sasha Brian MD [Non-Admitting Privileges] - 02/18/24 2:00 pm
Laya Broussard CRNP [Family Provider] -
Additional Discharge Medication Instructions: Please continue all home medications as previously prescribed. Take Acetaminophen 650 mg Q4H PRN for pain,fever.
Prescriptions:
New
acetaminophen 325 mg Tablet
650 mg PO Q4HPRN PRN (Reason: FELICIANO, mild pain, or fever >101F) Qty: 0 0RF
Rx Instructions:
Please purchase [id number]
Continued
citalopram 10 mg Tablet
10 mg PO DAILY
donepezil 10 mg Tablet
10 mg PO HS
simvastatin 20 mg Tablet
20 mg PO HS
lisinopril 10 mg Tablet
10 mg PO DAILY
memantine 10 mg Tablet
10 mg PO BID
Vision Formula (with lutein)
1 pill PO DAILY
calcium carbonate [Calcium 600] 600 mg calcium (1,500 mg) Tablet
600 mg PO DAILY
aspirin 81 mg Tablet,Chewable
81 mg PO DAILY
calcium phos,dibas-vitamin D3
1 tab PO DAILY
Care Plan Goals
Care Plan Goals:
Problem: Readiness for enhanced knowledge related to diagnosis and treatment plan
Goal: Understand your diagnosis and treatment plan needs, including medications if applicable.
Instructions: Know your diagnosis, underlying causes and treatment plan options, including medications if applicable. Consult with your health care team to learn about your diagnosis and treatment plan, including medications if applicable.
Discharge Date and Time
Print Language: BULGARIAN

Documented by User: Jesusita Greco PA-C 01/12/24 13:06
Discharge Summary
Discharge Data
Date of Admission: 01/10/24
Date of Discharge: 01/12/24
Hospital Course
Primary care physician:
Laya Broussard-Certified Registered Nurse Practitioner
Outpatient gun sealing machine operator:
Dr. Brian
Inpatient consultants:
[facility]
Procedures:
1. Left transfemoral transcatheter aortic valve replacement with #26 millimeter evolut fracture valve
Primary Diagnosis:
1. Severe aortic stenosis
Secondary Diagnoses:
1. Hypertension
2. Hyperlipidemia
3. Chronic anemia
4. Memory loss
5. Arthritis
HPI: 83-year-old female seen in the office by Dr. Márquez presented electively on 01/09 for a transcatheter aortic valve replacement.
Hospital course:
Patient was electively admitted on 01/09 for a transcatheter aortic valve replacement with Dr. Márquez. There were no intra-op events and patient went to cath lab radiological technologist recovery. Bilateral groins remain stable. She was sent to the Interventional Unit for the
remainder of their recovery. On 01/10, Post opertive day #1, bilateral groins remained stable. However, she complained of tenderness so the left groin was ultrasounded. It showed an unremarkable duplex examination of the left groin. No hematoma,
pseudoaneurysm or arteriovenous fistula were identified.. Repeat transthoracic echocardiogram showed a peak/mean gradient of 7/4 across the aortic valve with trace paravalvular aortic insufficiency. Echocardiogram also revealed moderate tricuspid
regurgitation, moderate mitral regurgitation, and an ejection fraction of 62%. She was kept for an additional day for monitoring. On 01/11, She was deemed stable for discharge with aspirin only.
Home medication changes:
Please continue all home medications as previously prescribed.
Take Acetaminophen 650 mg Q4H PRN for pain,fever.
Discharge Plan
-
Patient Disposition: Home (Routine Discharge)
Discharge Diagnosis/Procedures: TF-TAVR
Condition: Good
Diet: Low Cholesterol and 2 Gram Sodium
Activity: As tolerated
Driving Restrictions: No driving for 1 week
Bathing Restrictions: OK to Shower
Others Tests: Please call your gun sealing machine operator, Dr. Brian, to schedule a follow up echocardiogram for 30 days after your TAVR
Other Services: Cardiac Rehab
Wound Care: Please do not apply lotions, creams or powders to groin areas. Please monitor for increased pain, swelling, redness or drainage. Please notify your doctor if any occur.
Specialty Instructions: Weigh Daily- Call MD for wt gain/loss 3 lbs overnight/5 lbs in 1 week
Stand Alone Forms: DC Inst - TransFemoral (TAVR)
Referrals:
CT Transitional Care Nurse [Outside] (The Cardiothoracic Transitional Care Nurse will call you to set up a visit in 1-2 days.)
Sasha Brian MD [Non-Admitting Privileges] - 02/18/24 2:00 pm
Laya Broussard CRNP [Family Provider] -
Additional Discharge Medication Instructions: Please continue all home medications as previously prescribed. Take Acetaminophen 650 mg Q4H PRN for pain,fever.
Prescriptions:
New
acetaminophen 325 mg Tablet
650 mg PO Q4HPRN PRN (Reason: FELICIANO, mild pain, or fever >101F) Qty: 0 0RF
Rx Instructions:
Please purchase [id number]
Continued
citalopram 10 mg Tablet
10 mg PO DAILY
donepezil 10 mg Tablet
10 mg PO HS
simvastatin 20 mg Tablet
20 mg PO HS
lisinopril 10 mg Tablet
10 mg PO DAILY
memantine 10 mg Tablet
10 mg PO BID
Vision Formula (with lutein)
1 pill PO DAILY
calcium carbonate [Calcium 600] 600 mg calcium (1,500 mg) Tablet
600 mg PO DAILY
aspirin 81 mg Tablet,Chewable
81 mg PO DAILY
calcium phos,dibas-vitamin D3
1 tab PO DAILY
Care Plan Goals
Care Plan Goals:
Problem: Readiness for enhanced knowledge related to diagnosis and treatment plan
Goal: Understand your diagnosis and treatment plan needs, including medications if applicable.
Instructions: Know your diagnosis, underlying causes and treatment plan options, including medications if applicable. Consult with your health care team to learn about your diagnosis and treatment plan, including medications if applicable.
Discharge Date and Time
Print Language: BULGARIAN
--- NOTE | 2024-01-11 13:13 | PTCARENOTE ---
received pt at change of shift, right groin oozing, PA aware. left groin is cdi. pt offers no c/o at this time. pt educated on plan of care but needs reinforcement due to being forgetful. pt at bedside to visit. bed alarm in place.
--- NOTE | 2024-01-11 13:54 | W.PN.CARDCBS ---
Addendum entered and electronically signed by Malcolm Carranza MD 01/11/24 15:58:
I saw and examined the patient.
The Chip Mixing Machine Operator's note was reviewed and I agree with the note.
Comment: Briefly, 83-year-old woman past medical history of severe aortic stenosis who underwent TAVR 01/10/2024
Overall she seems to be doing well from a cardiovascular standpoint, currently asymptomatic
Postprocedure she developed left bundle branch block however this has resolved -tentatively plan for discharge with outpatient satellite project site monitor
Ultimately will follow-up with primary sheet metal worker at [facility], Dr. Brian
Original Note:
Today's Communication / Plan
-
Doing well status post TAVR
In sinus rhythm
Ambulate
For possible DC later today versus in a.m.
Outpatient follow-up with [facility] cardiology
Impression / Plan
-
Primary Glazier Helper: Dr. Sasha Brian
Assessment:
-Severe symptomatic s/p Pre-TAVR BAV followed by L TF TAVR w/ placement of 26mm Medtronic Evolut FX (no recaptures; 4-5mm NCC, 3-4mm LCC) 01/10/24
-Transient LBBB post procedure, resolved
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
-Mod MR/TR
-HTN
-HLD
-Chronic anemia
-Osteoporosis/DDD
-GERD
-Alzheimer's
Echo 01/10/2024: Limited echo images immediately after TAVR deployment, EF preserved, #26 Medtronic evolute TAVR with no AR seen
ECHO 01/11/24: EF 62%, moderate MR, well-seated #26 Medtronic evolute TAVR with peak/mean gradient 7/4 mmHg, trace paravalvular AR, moderate TR, PAP 30 to 35 mmHg
Plan:
-Status post Medtronic evolute TAVR 01/11/2024
-No complaints overnight
-Had transient bundle post procedure, which has resolved. EKG 01/10 sinus rhythm with chronic first-degree AV block. SR overnight upon review of tele
-Post TAVR echo today with preserved EF, well-seated TAVR and moderate MR and TR
-Hemoglobin 9.1 on 01/10. Right groin with some continued oozing. Left groin was tender this morning, ultrasound without evidence of hematoma, pseudoaneurysm, or fistula
-continue asa
-OOB/ambulate
-OP follow up with [facility] cardiology
-for possible DC later today vs in AM
-d/w CT surg OPERATIONAL RISK CONSULTANT
Progress Note - Glazier Helper
Subjective
Date of Service: January 11, 2024
With improvement in groin discomfort since this morning. No complaints
Objective
Labs:
01/11/24 02:54
01/11/24 02:54
Labs
Hgb 9.1 g/dL (12.0-16.0) L 01/11/24 02:54
Hct 27.3 % (37.0-47.0) L 01/11/24 02:54
Plt Count 135 10^3/uL (130-400) D 01/11/24 02:54
PT 13.5 Sec (11.4-14.6) 01/04/24 08:53
INR 1.04 01/04/24 08:53
APTT 30.2 Sec (23.4-35.0) 01/04/24 08:53
Sodium 130 mmol/L (135-145) L 01/11/24 02:54
Potassium 4.5 mmol/L (3.5-5.1) 01/11/24 02:54
BUN 30 mg/dl (7-17) H 01/11/24 02:54
Creatinine 0.9 mg/dL (0.6-1.0) 01/11/24 02:54
Glucose 117 mg/dl (70-99) H 01/11/24 02:54
Vital Signs and I&O:
Vital Signs
Temp Pulse Resp BP Pulse Ox
97.9 F 80 18 129/54 96
01/11/24 13:15 01/11/24 13:00 01/11/24 13:15 01/11/24 09:09 01/11/24 13:15
Vital Signs
Temp Pulse Resp BP Pulse Ox
97.9 F 80 18 129/54 96
01/11/24 13:15 01/11/24 13:00 01/11/24 13:15 01/11/24 09:09 01/11/24 13:15
Intake & Output
01/09/24 01/10/24 01/11/24 01/12/24
07:59 07:59 07:59 07:59
Intake Total 2330 / 2330
Output Total 1000 / 1000
Balance 1330 / 1330
Physical Exam
Physical Exam
GEN: No distress, awake, alert, oriented to self, place
HEENT: supple, anicteric, mmm, eomi
LUNGS: CTA B/L, no wheezes/rales
CV: Reg, S1/S2, no murmur
ABD: soft, BS+, NT/ND
EXT: No cyanosis, clubbing, edema
NEURO: Gross non-focal
SKIN: Warm, pink, dry. No rash. Some mild oozing from R groin site. soft sites B/L, NTTP
--- NOTE | 2024-01-11 15:18 | W.PN.UPDATE ---
Update Note
Progress Note Update
Patient set up with [employer] 14 day property assessment monitor to be applied at discharge. Reviewed how to apply, charge and return with patient and her family. Allowed for and answered questions.
[2024-01-11] MEDS: LIPITOR 40 MG PO (17:02)
[2024-01-11] MEDS: ARICEPT 10 MG PO (21:45)
--- NOTE | 2024-01-11 23:23 | PTCARENOTE ---
R groin w/ old bloody drg on dsg; unchanged. L groin is c/d/i. Assessment completed as documented. Pt has no c/o at this time. Bed alarm in place. Call miguel a w/in reach.
--- NOTE | 2024-01-12 02:58 | W.PN.CT ---
Addendum entered and electronically signed by Onel Márquez MD 01/12/24 09:37:
I saw and examined the patient.
The PA's note was reviewed and I agree with the note.
Comment:
POD#2 s/p L TF TAVR
U/S of L groin yesterday, negative for pseudoaneurysm
ECHO yesterday w/ P/M: 02/06, trace PVL, LVEF 62%; moderate TR/MR
LBBB remains resolved - RhythmStar monitor in place
OK for D/C home today
Original Note:
Today's Communication / Plan
-
Plan:
-No major issues overnight. Neurologically and hemodynamically intact
-New postop LBBB has resolved
-Repeat echo yesterday 01/10 showed a well seated TAVR with PG/MG 7/4 mmHg with trace AI. Moderate MR, EF 62%
-Cont. current meds ((ASA, Lipitor, Aricept, Memantine)
-Groin is C/D/I without significant hematoma. Groin u/s yesterday 01/10 was without pseudoaneurysm
-OOB into chair/Ambulate
-D/C home with monitor tech ([employer])
Assessment / Plan
-
- Severe symptomatic - s/p Pre-TAVR BAV followed by L TF TAVR w/ placement of 26mm Medtronic Evolut FX (no recaptures; 4-5mm NCC, 3-4mm LCC) on 01/10/24, pod #2
- New BBB w/o bradycardia or pacing requirements
- Post-TTE: No effusion, hyperdynamic function, mean gradient 3mmHg, no AI/PVL
- HTN/HLD
- Chronic anemia
- Osteoporosis
- DDD
- GERD
- Alzheimer's
- Pre-existing 1st degree AVB, transient new LBBB (resolved)
Discussed patient care with: Cardiology, Nursing, Respiratory Therapy, Pharmacy and Care Team
Subjective
Procedure
- s/p Pre-TAVR BAV followed by L TF TAVR w/ placement of 26mm Medtronic Evolut FX (no recaptures; 4-5mm NCC, 3-4mm LCC) on 01/10/24
-
Date of Service: January 12, 2024
Pt offers no complaints
Objective Data
-
PT 13.5 Sec (11.4-14.6) 01/04/24 08:53
INR 1.04 01/04/24 08:53
APTT 30.2 Sec (23.4-35.0) 01/04/24 08:53
Vital Signs
Vital Signs
Temp Pulse Resp BP Pulse Ox
98.3 F 71 20 139/51 98
01/11/24 23:31 01/11/24 22:30 01/11/24 23:31 01/11/24 22:18 01/11/24 23:31
CT Intake/Output/Weight
01/11/24 01/11/24 01/12/24
06:59 18:59 06:59
Intake Total 150 / 1850 480 / 480
Output Total 300 / 1000 175 / 325 150 / 325
Balance -150 / 850 305 / 155 -150 / 155
SaO2: 98 (RA)
Physical Exam
-
General: Awake, Oriented and AOx3
Cardiovascular: Regular rate & rhythm, No Murmurs and No Gallop
Respiratory: Clear
Incision: Clean, Dry, Intact and Dressing Intact
Extremities: No Edema
Data Reviewed
-
Lab Results: Results Reviewed
Medications: Active Meds Reviewed
Chest X-Ray: Report Reviewed and Image Reviewed
ECG: Report Reviewed and Image Reviewed
[2024-01-12 03:59] VITALS: BP 131/52
[2024-01-12 04:29] LABS: Hematocrit 27.2 % (37.0-47.0); Hemoglobin 9.2 g/dL (12.0-16.0); Mean Corp Hgb Conc. 33.8 g/dL (33.0-37.0); Mean Corpuscular Hgb 30.6 pg (27.0-31.0); Mean Corpuscular Volume 90.4 fL (81.0-99.0); Mean Platelet Volume 8.8 fL (7.4-10.4); Platelet Count 128 10^3/uL (130-400); Red Blood Cell Count 3.01 10^6/uL (4.20-5.40); Red Cell Dist. Width 14.1 % (11.5-14.5); White Blood Cell Count 8.6 10^3/uL (4.8-10.8)
[2024-01-12 04:37] VITALS: BMI 22.8
[2024-01-12 04:57] LABS: Blood Urea Nitrogen 39 mg/dl (7-17); Calcium 9.1 mg/dl (8.4-10.2); Carbon Dioxide 24 mmol/L (22-30); Chloride 99 mmol/L (98-107); Estimated Creatinine Clearance 27 ml/min; Glucose 94 mg/dl (70-99); Magnesium 1.8 mg/dl (1.6-2.3); Potassium 4.9 mmol/L (3.5-5.1); Sodium 131 mmol/L (135-145); eGFR 55.55
[2024-01-12 07:30] VITALS: BP 148/51
[2024-01-12] MEDS: OSCAL CAL 500 500 MG PO (08:39)
[2024-01-12] MEDS: OCUVITE SOFTGEL 1 CAP PO (08:39)
[2024-01-12] MEDS: OSCAL 500 + D 500 MG PO (08:40)
[2024-01-12] MEDS: ZESTRIL 10 MG PO (08:40)
[2024-01-12] MEDS: LOW STRENGTH ASPIRIN 81 MG PO (08:40)
[2024-01-12] MEDS: CELEXA 10 MG PO (08:40)
[2024-01-12] MEDS: NAMENDA 10 MG PO (08:40)
[2024-01-12] MEDS: THERAGRAN 1 TABLET PO (08:40)
--- NOTE | 2024-01-12 09:59 | PTCARENOTE ---
pt is sr on the monitor, hr in the 60s, vss. pt offers no complaints at this time. pt educated on plan of care and pt verbalized understanding. pt needs reinforcement due to pt being forgetful. bed alarm in place. call grady within reach.
[2024-01-12 12:14] VITALS: BP 140/52
--- NOTE | 2024-01-12 13:25 | PTCARENOTE ---
d/c instructions read to pts daughter Rosa and she verbalized understanding. iv and tele removed. pt left with belongings from room, scripts and home potline monitor. pt left via wheelchair with staff member.
== END 2024-01-12 14:05 | disposition home or self-care (01) | DRG 267 ==
LOC: IVU 07:24
PROVIDERS: Physician Assistant Medical; ADMITTING PHYSICIAN Thoracic Surgery (Cardiothoracic Vascular Surgery); FAMILY PHYSICIAN Nurse Practitioner
PROC: 02RF38Z Replacement of Aortic Valve with Zooplastic Tissue, Percutaneous Approach (ICD-10-PCS; 2024-01-10)
DX: I35.0 Nonrheumatic aortic (valve) stenosis (principal); Z00.6 Encounter for examination for normal comparison and control in clinical research program; E78.5 Hyperlipidemia, unspecified; I10 Essential (primary) hypertension; M81.0 Age-related osteoporosis without current pathological fracture; K21.9 Gastro-esophageal reflux disease without esophagitis; G30.9 Alzheimer's disease, unspecified; F02.80 Dementia in other diseases classified elsewhere, unspecified severity, without behavioral disturbance, psychotic disturbance, mood disturbance, and anxiety; D64.9 Anemia, unspecified; M19.90 Unspecified osteoarthritis, unspecified site; I44.0 Atrioventricular block, first degree; I44.7 Left bundle-branch block, unspecified; Z79.82 Long term (current) use of aspirin; Z79.899 Other long term (current) drug therapy
CPT/HCPCS: 93308; 33361; 36415; 71045; 71046; 80048; 80053; 81003; 81015; 82248; 82962; 83036; 83735; 83880; 85025; 85027; 85347; 85610; 85730; 86850; 86900; 86901; 86920; 87070; 93005; 93306; 93321; 93325; 93926; C1760; C1769; C1894; Q9967

== ENCOUNTER → 2024-02-14 10:36 | Outpatient (REF) | payer MEDICARE, OTHER, SELFPAY ==
[2024-02-14 11:28] LABS: % Basophils 0.5 % (0-2); % Eosinophils 3.3 % (0-6); % Immature Granulocytes 0.4 % (0-0.5); % Lymphocytes 16.2 % (20.5-51.1); % Monocytes 12.3 % (1.7-9.3); % Neutrophils 67.3 % (42.2-75.2); Absolute Eosinophils 0.3 10^3/uL (0-0.7); Absolute Lymphocytes 1.3 10^3/uL (1.2-3.4); Absolute Neutrophils 5.3 10^3/uL (1.4-6.5); Hematocrit 30.2 % (37.0-47.0); Mean Corp Hgb Conc. 33.1 g/dL (33.0-37.0); Mean Corpuscular Hgb 29.9 pg (27.0-31.0); Mean Corpuscular Volume 90.1 fL (81.0-99.0); Mean Platelet Volume 8.8 fL (7.4-10.4); Nucleated Red Blood Cells % 0 %; Platelet Count 181 10^3/uL (130-400); Red Blood Cell Count 3.35 10^6/uL (4.20-5.40); Red Cell Dist. Width 13.7 % (11.5-14.5); White Blood Cell Count 7.9 10^3/uL (4.8-10.8)
== END ==
LOC: REG 10:36
PROVIDERS: ATTENDING PHYSICIAN Nurse Practitioner; FAMILY PHYSICIAN Internal Medicine
DX: I10 Essential (primary) hypertension (principal)
CPT/HCPCS: 36415; 85025

== ENCOUNTER → 2024-02-27 06:46 | Outpatient (REF) | payer MEDICARE, OTHER, SELFPAY | LOC: RCS 06:46 | PROVIDERS: ATTENDING PHYSICIAN Internal Medicine Interventional Cardiology; FAMILY PHYSICIAN Nurse Practitioner | DX: Z95.4 Presence of other heart-valve replacement (principal) | CPT/HCPCS: 93306 ==

== ENCOUNTER → 2024-04-23 06:25 | Outpatient (REF) | payer MEDICARE, OTHER, SELFPAY ==
[2024-04-23 07:57] LABS: Blood Urea Nitrogen 32 mg/dl (7-17); Calcium 9.4 mg/dl (8.4-10.2); Carbon Dioxide 30 mmol/L (22-30); Chloride 102 mmol/L (98-107); Glucose 90 mg/dl (70-99); Iron 64 ug/dl (37-170); Potassium 4.8 mmol/L (3.5-5.1); Sodium 139 mmol/L (135-145); eGFR 49.55
[2024-04-23 08:07] LABS: Percent Saturation 18 % (20-50); Total Iron Binding Capacity 345 ug/dl (265-497)
== END ==
LOC: REG 06:25
PROVIDERS: ATTENDING PHYSICIAN Internal Medicine Gastroenterology; FAMILY PHYSICIAN Nurse Practitioner
DX: D64.9 Anemia, unspecified (principal)
CPT/HCPCS: 36415; 80048; 82728; 83540; 83550

== ENCOUNTER → 2024-04-25 13:12 | Outpatient (REF) | payer MEDICARE, OTHER, SELFPAY | LOC: HWRAD 13:12 | PROVIDERS: ATTENDING PHYSICIAN Internal Medicine Gastroenterology; FAMILY PHYSICIAN Nurse Practitioner | DX: R19.4 Change in bowel habit (principal); D64.9 Anemia, unspecified | CPT/HCPCS: 74177; Q9967 ==

== ENCOUNTER → 2024-09-23 08:10 | Outpatient (REF) | payer MEDICARE, OTHER, SELFPAY | LOC: RAD 08:10 | PROVIDERS: ATTENDING PHYSICIAN Internal Medicine Critical Care Medicine; FAMILY PHYSICIAN Nurse Practitioner | DX: R93.89 Abnormal findings on diagnostic imaging of other specified body structures (principal); R91.8 Other nonspecific abnormal finding of lung field; J47.9 Bronchiectasis, uncomplicated | CPT/HCPCS: 71250 ==

== ENCOUNTER 2025-02-21 17:14 | Emergency (ER) | payer MEDICARE, OTHER, SELFPAY ==
[2025-02-21 17:20] VITALS: BP 139/54
[2025-02-21 21:03] VITALS: BP 178/84
--- NOTE | 2025-02-21 21:43 | ED.GENMED ---
History of Present Illness
General
Chief Complaint: Musculo-Skeletal Complaint
Source: patient
Exam Limitations: none
Time Seen by Provider: 02/21/25 20:17
Nursing documentation reviewed up to this point in time: agreed with
History of Present Illness
History of Present Illness:
84-year-old female presenting to the emergency department today with concerns of left-sided wrist discomfort after what she describes as mechanical fall earlier today. Denies any additional injuries otherwise. Denies additional concern.
Past History
Past History
ED Past Medical History: GERD and Valvular disease
ED Past Surgical History: None
Social History
Tobacco: Non-smoker
Alcohol: None
Drug: None
Personal:
Living: with family
Review of Systems
Review of Systems
Allergies reviewed?: Yes
All Other Systems: ROS reviewed and negative except as documented in HPI and ROS
Phy Exam
Physical Exam
Physical Exam:
GENERAL: Alert , in no apparent distress
EYE: pupils equal and reactive
NECK: Supple, no significant adenopathy.
ENT: o/p clr, mmm.
CARDIAC: Regular rate and rhythm .
LUNGS: Clear breath sounds bilaterally, no acute respiratory distress, no wheezes/rales/rhonchi
ABDOMEN: Soft, without focal tenderness, no r/g, no cvat
NEUROLOGICAL: Alert and oriented, no focal neuro deficits
SKIN: Warm and dry, skin intact.
MUSCULOSKELETAL: Swelling and ecchymosis to the left wrist. Good account technician strength normal pulses no tenderness throughout the forearm elbow shoulder., well perfused.
PSYCH: Normal and appropriate interaction.
Course
Orders/Labs/Results
Orders:
Orders
02/21/25 17:23
Wrist, Left 3 Views CR [CR Wrist - Left Min 3 Views] Urgent
Comment:
Reason For Exam: pain
Vital Signs
Initial and Last Documented VS:
Initial Vital Signs
Temp Pulse Resp BP Pulse Ox
97.9 F 64 18 139/54 98
02/21/25 17:20 02/21/25 17:20 02/21/25 17:20 02/21/25 17:20 02/21/25 17:20
Last Documented Vital Signs
Temp Pulse Resp BP Pulse Ox
97.9 F 69 14 178/84 100
02/21/25 17:20 02/21/25 21:03 02/21/25 21:03 02/21/25 21:03 02/21/25 21:03
MDM/Problems Addressed
MDM/Problems Addressed:
84-year-old female presenting with concerns of left wrist discomfort after mechanical fall. Otherwise no additional symptoms or concerns at this time. No evidence of additional injuries. Patient is not on blood thinners. Patient was placed in a
volar splint otherwise will follow-up closely with orthopedics. Return as given.
*Pulse Oximetry
SaO2: 100
Oxygen Mode of Delivery: Room air
Patient hypoxic: no (100)
*Critical Care Note
Total Time (30-74mins, 75-104mins- exclusive of procedures): Not Applicable
ED Attending Note
-
Portions of this chart may have been created with voice recognition software.� Occasional wrong word or��sound alike� substitutions may have occurred due to the inherent limitations of voice recognition software.
Discharge Plan
Departure
Patient Disposition: Home (Routine Discharge)
Date of Disposition: 02/21/25
Time of Disposition: 21:45
Patient with high blood pressure during this ER visit?: No
Condition: Good
Covid-19: Not Applicable
Discharge Problem:
Fracture of wrist
Instructions: Wrist Fracture (DC)
Prescriptions:
No Action
citalopram 10 mg Tablet
10 mg PO DAILY
donepezil 10 mg Tablet
10 mg PO HS
simvastatin 20 mg Tablet
20 mg PO HS
lisinopril 10 mg Tablet
10 mg PO DAILY
memantine 10 mg Tablet
10 mg PO BID
Vision Formula (with lutein)
1 pill PO DAILY
calcium carbonate [Calcium 600] 600 mg calcium (1,500 mg) Tablet
600 mg PO DAILY
aspirin 81 mg Tablet,Chewable
81 mg PO DAILY
calcium phos,dibas-vitamin D3
1 tab PO DAILY
acetaminophen 325 mg Tablet
650 mg PO Q4HPRN PRN (Reason: FELICIANO, mild pain, or fever >101F) Qty: 0 0RF
Rx Instructions:
Please purchase [id number]
Referrals:
Alex Carolina MD [Active, Orthopedics] - Follow up in 1 week
Laya Broussard CRNP [Family Provider, Internal Medicine]
Activity Restrictions/Additional Instructions:
You came to the emergency department today with concerns of wrist discomfort after a fall. You were found to have a broken wrist. Please leave the splint in place until orthopedic follow-up within 1 week. Return for any worsening, new or
concerning symptoms.
Interventions
Interventions:
*Risk Screen - Suicide Last Done: 02/21/25 17:20
*General Assessment Last Done: 02/21/25 17:20
*Neglect/Abuse Screening Last Done: 02/21/25 17:20
*ED- Fall Risk Assessment Last Done: 02/21/25 17:20
*ED COVID-19 Vaccine History Last Done: 02/21/25 17:20
ED-Musculoskeletal Assessment Last Done: 02/21/25 21:03
Discharge Date and Time
Print Language: VIET[place]ESE
[2025-02-21 22:04] VITALS: BP 168/64
--- NOTE | 2025-02-21 22:04 | EDRN ---
Pt complained splint felt tight so this RN unwrapped and rewrapped splint. Readjusted sling
== END 2025-02-21 22:10 | disposition home or self-care (01) ==
LOC: EMR 17:14
PROVIDERS: EMERGENCY PHYSICIAN Emergency Medicine; FAMILY PHYSICIAN Nurse Practitioner
DX: S52.502A Unspecified fracture of the lower end of left radius, initial encounter for closed fracture (principal); W19.XXXA Unspecified fall, initial encounter; M18.12 Unilateral primary osteoarthritis of first carpometacarpal joint, left hand
CPT/HCPCS: 99283; 29125; 73110

== ENCOUNTER 2025-02-24 11:37 | Emergency (ER) | payer MEDICARE, OTHER, SELFPAY ==
[2025-02-24 11:52] VITALS: BP 119/45
--- NOTE | 2025-02-24 12:45 | ED.GENMED ---
History of Present Illness
General
Chief Complaint: Swelling
Source: patient
Exam Limitations: none
Time Seen by Provider: 02/24/25 12:12
History of Present Illness
History of Present Illness:
84-year-old female presents with daughter who states the patient has had increased swelling of the left hand. She was here last week for a distal radius fracture and a splint was applied. They have an appointment with orthopedics but not until a
week from now. They are concerned about increased swelling. Patient does have history of dementia and her history is somewhat limited.
Past History
Past History
ED Past Medical History: GERD and Valvular disease
ED Past Surgical History: None
Social History
Tobacco: Non-smoker
Alcohol: None
Drug: None
Personal:
Living: with family
Phy Exam
Physical Exam
Physical Exam:
General: Well-appearing female in no acute respiratory distress
HEENT: Normocephalic atraumatic musculoskeletal exam: Left hand is swollen and ecchymotic. She is tender over the distal radius. The elbow is nontender.
Vascular: 2+ radial pulse left wrist
Neurologic: Good sensation all fingers left hand
Scores
Heart Failure Risk
Heart Failure Risk Score: Not Applicable
Course
Vital Signs
Initial and Last Documented VS:
Initial Vital Signs
Temp Pulse Resp BP Pulse Ox
98.4 F 75 16 119/45 97
02/24/25 11:52 02/24/25 11:52 02/24/25 11:52 02/24/25 11:52 02/24/25 11:52
Last Documented Vital Signs
Temp Pulse Resp BP Pulse Ox
98.4 F 75 20 119/45 97
02/24/25 11:52 02/24/25 11:52 02/24/25 12:09 02/24/25 11:52 02/24/25 11:52
MDM/Problems Addressed
Differential Diagnosis Includes:
On initial assessment the splint was applied incorrectly. The daughter states that the patient may have taken it off and try to put it back on herself. There was some swelling but it seems like the swelling is dependent edema. She has been
wearing her sling properly as well. I replaced the splint with a volar splint from the knuckles down to the elbow with 2 inch OCL. This was placed on top of cast padding and wrapped with Zia bandages. A larger sling was applied for more support.
She will continue follow-up with orthopedics
*Pulse Oximetry
SaO2: 97
Oxygen Mode of Delivery: Room air
Patient hypoxic: no
*Critical Care Note
Total Time (30-74mins, 75-104mins- exclusive of procedures): Not Applicable
ED Attending Note
-
Portions of this chart may have been created with voice recognition software.� Occasional wrong word or��sound alike� substitutions may have occurred due to the inherent limitations of voice recognition software.
Discharge Plan
Departure
Patient Disposition: Home (Routine Discharge)
Date of Disposition: 02/24/25
Time of Disposition: 12:47
Patient with high blood pressure during this ER visit?: No
Discharge Problem:
Hand swelling
Prescriptions:
No Action
citalopram 10 mg Tablet
10 mg PO DAILY
donepezil 10 mg Tablet
10 mg PO HS
simvastatin 20 mg Tablet
20 mg PO HS
lisinopril 10 mg Tablet
10 mg PO DAILY
memantine 10 mg Tablet
10 mg PO BID
Vision Formula (with lutein)
1 pill PO DAILY
calcium carbonate [Calcium 600] 600 mg calcium (1,500 mg) Tablet
600 mg PO DAILY
aspirin 81 mg Tablet,Chewable
81 mg PO DAILY
calcium phos,dibas-vitamin D3
1 tab PO DAILY
acetaminophen 325 mg Tablet
650 mg PO Q4HPRN PRN (Reason: FELICIANO, mild pain, or fever >101F) Qty: 0 0RF
Rx Instructions:
Please purchase [id number]
Referrals:
UNKNOWN - PT DOES,NOT KNOW [Family Provider]
Activity Restrictions/Additional Instructions:
As discussed, you received a new splint today that should help with the swelling. Use a larger sling and keep the hand elevated for swelling. Follow-up with orthopedics as planned
Interventions
Interventions:
*Risk Screen - Suicide Last Done: 02/24/25 11:54
*General Assessment Last Done: 02/24/25 12:09
*Neglect/Abuse Screening Last Done: 02/24/25 11:54
*ED- Fall Risk Assessment Last Done: 02/24/25 12:09
*ED COVID-19 Vaccine History Last Done: 02/24/25 12:09
ED- Cardiac Assessment Last Done: 02/24/25 12:09
ED- Pulmonary Assessment Last Done: 02/24/25 12:09
ED-Skin Assessment Last Done: 02/24/25 12:09
Discharge Date and Time
Print Language: BELARUSIAN
== END 2025-02-24 13:15 | disposition home or self-care (01) ==
LOC: EMR 11:37
PROVIDERS: EMERGENCY PHYSICIAN Emergency Medicine
DX: R22.32 Localized swelling, mass and lump, left upper limb (principal); K21.9 Gastro-esophageal reflux disease without esophagitis; I38 Endocarditis, valve unspecified
CPT/HCPCS: 99282; 29125

== ENCOUNTER → 2025-03-20 08:48 | Outpatient (REF) | payer MEDICARE, OTHER, SELFPAY | LOC: RAD 08:48 | PROVIDERS: ATTENDING PHYSICIAN Internal Medicine Rheumatology; FAMILY PHYSICIAN Internal Medicine | DX: I10 Essential (primary) hypertension (principal); I35.0 Nonrheumatic aortic (valve) stenosis; Z95.2 Presence of prosthetic heart valve; M81.0 Age-related osteoporosis without current pathological fracture | CPT/HCPCS: 77080; 93306 ==

== ENCOUNTER 2025-04-02 06:17 | Day surgery (SDC) | payer MEDICARE, OTHER, SELFPAY ==
[2025-04-02 11:56] VITALS: BMI 26.7
[2025-04-02 12:30] VITALS: BP 153/55; BMI 26.7
[2025-04-02 14:32] VITALS: BP 74/60
[2025-04-02 14:34] VITALS: BP 101/57
[2025-04-02 14:45] VITALS: BP 128/107
[2025-04-02 15:01] VITALS: BP 140/59
== END 2025-04-02 15:20 | disposition home or self-care (01) ==
LOC: SDS 06:17
PROVIDERS: ATTENDING PHYSICIAN Internal Medicine Gastroenterology
DX: D50.0 Iron deficiency anemia secondary to blood loss (chronic) (principal); Z80.0 Family history of malignant neoplasm of digestive organs; R19.4 Change in bowel habit; K57.30 Diverticulosis of large intestine without perforation or abscess without bleeding; K63.3 Ulcer of intestine
CPT/HCPCS: 45378